=== PATIENT | male | born 2000 | race Caucasian/White ===

== ENCOUNTER 2023-11-03 21:30 | Emergency (ER) | payer SELFPAY ==
[2023-11-03] MEDS ORDERED: Ibuprofen 200 MG TAB ONE (22:18)
== END 2023-11-03 22:04 | disposition home or self-care (01) ==
LOC: CSHERS 21:30
DX: S83.92XA Sprain of unspecified site of left knee, initial encounter (principal); X50.1XXA Overexertion from prolonged static or awkward postures, initial encounter; Y93.23 Activity, snow (alpine) (downhill) skiing, snowboarding, sledding, tobogganing and snow tubing
CPT/HCPCS: 99283